=== PATIENT | male | born 1980 | race Caucasian/White ===

== ENCOUNTER 2018-09-01 08:51 | Outpatient (CLI) | payer BC ==
[2018-09-01 09:43] LABS: #Basophils 0.1 thou/uL (0.0-0.2); #Eosinphils 0.3 thou/uL (0.0-0.7); #Lymphocytes 2.3 thou/uL (1.20-3.40); #Monocytes 0.6 thou/uL (0.11-0.59); %Basophils 1.2 % (0.0-1.0); %Eosinophils 2.7 % (0.0-10.0); %Monocytes 5.5 % (0.0-10.0); %Neutrophils 70.5 % (42.0-75.0); Hemoglobin 16.1 g/dL (14.0-18.0); Mean Corpuscular HGB CONC 33.7 g/dL (32.0-36.0); Mean Corpuscular Hemoglobin 29.1 pg (27.0-31.0); Mean Corpuscular Volume 86.2 fL (78.0-98.0); Mean Platelet Volume 8.1 fL (7.4-10.4); Platelet Count 203 thou/uL (130-400); RBC Distribution Width 12.8 % (11.5-14.5); Red Blood Cell (RBC) Count 5.54 mill/uL (4.70-6.10); White Blood Cell (WBC) Count 11.4 thou/uL (4.8-10.8)
[2018-09-01 09:58] LABS: ALT (SGPT) 25 U/L (8-55); AST (SGOT) 18 U/L (5-34); Albumin 4.6 g/dL (3.5-5.0); Alkaline Phosphatase 101 U/L (40-150); Anion Gap 16 mmol/L (10-20); BUN (Urea Nitrogen) 14 mg/dL (8.9-20.6); Bilirubin, Total 0.8 mg/dL (0.2-1.2); Calc. Creatinine Clearance 0 mL/min (70-130); Calcium 10.7 mg/dL (7.8-10.44); Carbon Dioxide 27 mmol/L (22-29); Chloride 104 mmol/L (98-107); Estimated GFR-MDRD Greater than 90; Globulin 3.5 g/dL (2.4-3.5); Glucose 103 mg/dL (70-105); Lipase 11 U/L (8-78); Protein, Total 8.1 g/dL (6.0-8.3); Sodium 143 mmol/L (136-145)
--- NOTE | 2018-09-01 11:06 | RAD ---
TWO VIEWS CHEST: DATE: 09/01/2018. PROVIDED CLINICAL HISTORY: Back pain. FINDINGS: Comparison 01/05/2017. The lungs are hypoinflated. Cardiac and mediastinal silhouette is within norm al limits. No focal consolidation, pleural fluid, or pneumothorax apparent. IMPRESSION: No evidence for an acute cardiopulmonary process. POS: [facility]
== END 2018-09-01 08:52 | disposition home or self-care (01) ==
LOC: SCSRAD 08:51
PROVIDERS: ATTEND Family Medicine
DX: M54.9 Dorsalgia, unspecified (principal)
CPT/HCPCS: 36415; 71046; 80053; 82150; 83690; 85025

== ENCOUNTER 2019-02-14 15:54 | Outpatient (CLI) | payer BC ==
--- NOTE | 2019-02-14 16:23 | RAD ---
Cervical spine 4 views: Prescribed today COMPARISON: None HISTORY: Left neck pain and left shoulder pain FINDINGS: Lateral imaging demonstrates normal cervical vertebral body height and alignment. No prever tebral soft tissue swelling. Open-mouth odontoid view demonstrates a normal-appearing dens and C1-2 articulation. There is uncovertebral osteophyte formation on the left at C4-5 and C5-6. IMPRESSION: No acute osseous abnormality. Left-sided uncovertebral osteophyte formation as above.
--- NOTE | 2019-02-14 16:30 | RAD ---
Frontal and lateral imaging of the thoracic spine: 02/14/2019 COMPARISON: None HISTORY: Pain, remote history of injury FINDINGS: No anterolisthesis or retrolisthesis is noted within the thoracic spine. At T5 there is mil d anterior osteophyte formation. There is left lateral osteophyte formation at T6-7 and there is right lateral osteophyte formation at T9-10 and T10-11. Thoracic pedicles appear intact on frontal im aging. No acute osseous abnormality is noted. IMPRESSION: Relatively mild degenerative change. No acute osseous abnormality.
== END 2019-02-14 15:55 | disposition home or self-care (01) ==
LOC: SCSRAD 15:54
PROVIDERS: ATTEND Family Medicine
DX: M54.6 Pain in thoracic spine (principal); M54.2 Cervicalgia; M47.814 Spondylosis without myelopathy or radiculopathy, thoracic region; M25.78 Osteophyte, vertebrae
CPT/HCPCS: 72040; 72072

== ENCOUNTER 2020-07-14 13:35 | Emergency (ER) | payer BC ==
[2020-07-14] MEDS ORDERED: Acetaminophen 500 MG TAB ONE (14:01)
[2020-07-14] MEDS ORDERED: Dexamethasone 10 MG/ML VIAL ONE (15:17)
[2020-07-14] MEDS ORDERED: Ondansetron PF 4 MG/2 ML Vial ONE (15:17)
--- NOTE | 2020-07-14 15:25 | RAD ---
EXAM: Two views chest PROVIDED CLINICAL HISTORY: Cough COMPARISON: 09/01/2018 FINDINGS: Cardiac and mediastinal silhouette appears within normal limits. Patchy right midlung zone airspace d isease is suspected. No pleural fluid or pneumothorax apparent. IMPRESSION: Suspected patchy right midlung zone airspace disease. Correlate for pneumonia.
[2020-07-14 15:40] LABS: #Lymphocytes 0.9 thou/uL (1.20-3.40); #Monocytes 0.3 thou/uL (0.11-0.59); #Neutrophils 3.5 thou/uL (1.40-6.50); %Basophils 0.2 % (0.0-1.0); %Eosinophils 0.3 % (0.0-10.0); %Lymphocytes 18.7 % (21.0-51.0); %Monocytes 6.2 % (0.0-10.0); %Neutrophils 74.6 % (42.0-75.0); Hemoglobin 15.4 g/dL (14.0-18.0); Mean Corpuscular Hemoglobin 30.9 pg (27.0-31.0); Mean Corpuscular Volume 85.9 fL (78.0-98.0); Mean Platelet Volume 8.1 fL (7.4-10.4); Platelet Count 120 thou/uL (130-400); Red Blood Cell (RBC) Count 4.97 mill/uL (4.70-6.10); White Blood Cell (WBC) Count 4.7 thou/uL (4.8-10.8)
[2020-07-14 15:56] LABS: ALT (SGPT) 38 U/L (8-55); AST (SGOT) 38 U/L (5-34); Albumin 4.3 g/dL (3.5-5.0); Alkaline Phosphatase 86 U/L (40-110); Anion Gap 18 mmol/L (10-20); BUN (Urea Nitrogen) 12 mg/dL (8.9-20.6); Bilirubin, Total 1.4 mg/dL (0.2-1.2); Calc. Creatinine Clearance 0 mL/min (70-130); Calcium 8.9 mg/dL (7.8-10.44); Carbon Dioxide 18 mmol/L (22-29); Chloride 102 mmol/L (98-107); Globulin 3.8 g/dL (2.4-3.5); Glucose 122 mg/dL (70-105); Protein, Total 8.1 g/dL (6.0-8.3); Sodium 135 mmol/L (136-145)
[2020-07-15 01:13] LABS: SARS-CoV-2 MS2 Positive; SARS-CoV-2 N Gene Positive; SARS-CoV-2 S Gene Positive; SARS-CoV-2 by NAA DETECTED (NotDetected); SARS-CoV-2 orf1ab Positive
== END 2020-07-14 16:21 | disposition home or self-care (01) ==
LOC: ERS 13:35
DX: U07.1 COVID-19 (principal); I48.91 Unspecified atrial fibrillation; Z79.899 Other long term (current) drug therapy; Z87.891 Personal history of nicotine dependence
CPT/HCPCS: 71045; 80053; 85025; 87635; 96374; 96375; J1100; J2405; U0003

== ENCOUNTER 2024-01-10 13:10 | Outpatient (CLI) | payer OTHER | END 2024-01-10 13:11 | disposition home or self-care (01) | LOC: BICRAD 13:10 | PROVIDERS: ATTEND Preventive Medicine Occupational Medicine | DX: M54.50 Low back pain, unspecified (principal); M25.561 Pain in right knee; M25.861 Other specified joint disorders, right knee; M25.761 Osteophyte, right knee; M76.9 Unspecified enthesopathy, lower limb, excluding foot | CPT/HCPCS: 72100 ==